=== PATIENT | female | born 1945 | race Caucasian/White ===

== ENCOUNTER 2019-01-19 07:26 | Emergency (ER) | payer MEDICARE, BC ==
[2019-01-19] MEDS ORDERED: Ciprofloxacin 500 MG Tab ONE (09:05)
--- NOTE | 2019-01-19 09:17 | EDM.PDOC ---
ED HPI GENERAL MEDICAL PROBLEM - General Chief Complaint: Genitourinary Problem Stated Complaint: UTI Time Seen by Provider: 01/19/19 08:30 Source of Information: Reports: Patient History Limitations: Reports: No Limitations - History of Present Illness INITIAL COMMENTS - FREE TEXT/NARRATIVE: According to patient she claims she started having dysuria yesterday on and off , but frequency of urination. But since she has woke up today, she has been having increased urinary frequency, urgency and worsening dysuria. No fever or chills. No nausea or vomiting. No back pain. No abdominal pain or suprapubic discomfort. No other complaints. Onset Date: 01/18/19 Duration: Getting Worse Severity: Mild Associated Symptoms: Denies: Confusion, Chest Pain, Cough, Diaphoresis, Fever/ Chills, Headaches, Loss of Appetite, Malaise, Nausea/Vomiting, Rash, Seizure, Shortness of Breath, Syncope, Weakness - Related Data Allergies Allergy/AdvReac Type Severity Reaction Status Date / Time morphine Allergy Nausea Verified 01/19/19 08:25 Home Meds: Home Meds ARIPiprazole [Abilify] 2 mg PO DAILY 01/19/19 [History] Jaars Carbonate 300 mg PO BEDTIME 01/19/19 [History] Oxybutynin 5 mg PO DAILY 01/19/19 [History] Tamoxifen [Nolvadex] 5 mg PO DAILY 01/19/19 [History] lamoTRIgine [Lamictal] 400 mg PO BEDTIME 01/19/19 [History] traZODone 100 mg PO BEDTIME 01/19/19 [History] Past Medical History HEENT History: Reports: Allergic Rhinitis, Other (See Below) Other HEENT History: more itchy eyes than rhinitis Other [employer] History: hysterectomy d/t bleeding Musculoskeletal History: Reports: Arthritis, Other (See Below) Other Musculoskeletal History: achy joints Psychiatric History: Reports: Bipolar Oncologic (Cancer) History: Reports: Breast - Infectious Disease History Infectious Disease History: Reports: Chicken Pox, Measles Social & Family History - Family History Family Medical History: Noncontributory - Tobacco Use Smoking Status *Q: Never Smoker Second Hand Smoke Exposure: No - Caffeine Use Caffeine Use: Reports: Coffee - Recreational Drug Use Recreational Drug Use: No ED ROS GENERAL - Review of Systems Review Of Systems: See Below Constitutional: Denies: Fever, Chills HEENT: Denies: Rhinitis, Throat Pain Respiratory: Denies: Shortness of Breath, Cough, Sputum Cardiovascular: Denies: Chest Pain, Lightheadedness GI/Abdominal: Denies: Abdominal Pain, Constipation, Diarrhea, Nausea, Vomiting : Reports: Dysuria, Frequency, Urgency. Denies: Discharge, Flank Pain, Hematuria Musculoskeletal: Denies: Back Pain, Joint Pain, Joint Swelling Skin: Denies: Bruising, Pruritis, Rash ED EXAM, GENERAL - Physical Exam Exam: See Below Exam Limited By: No Limitations General Appearance: Alert, WD/WN, No Apparent Distress Eye Exam: Bilateral Eye: EOMI, PERRL Ears: Normal External Exam, Normal Canal, Hearing Grossly Normal, Normal TMs Ear Exam: Bilateral Ear: Auricle Normal, Canal Normal, TM normal Nose: Normal Inspection, Normal Mucosa, No Blood Throat/Mouth: Normal Inspection, Normal Lips, Normal Teeth, Normal Gums, Normal Oropharynx, Normal Voice, No Airway Compromise Head: Atraumatic, Normocephalic Neck: Normal Inspection, Supple, Non-Tender, Full Range of Motion Respiratory/Chest: No Respiratory Distress, Lungs Clear, Normal Breath Sounds, No Accessory Muscle Use, Chest Non-Tender Cardiovascular: Normal Peripheral Pulses, Regular Rate, Rhythm, No Edema, No Gallop, No JVD, No Murmur, No Rub GI/Abdominal: Normal Bowel Sounds, Soft, Non-Tender, No Organomegaly, No Distention, No Abnormal Bruit, No Mass Extremities: Normal Inspection, Normal Range of Motion, Non-Tender, Normal Capillary Refill, No Pedal Edema Course - Vital Signs Text/Narrative:: UA shows large leucos-estrase. Also Micro shows 75-100 WBC. Pt reassured that she has lower urinary tract infection. Started on cipro 500mg twice daily for 1 wk. Advised to drink plenty of fluids. 1-2 glass of cranberry juice daily and 2 liters of fluids. Symptoms should gradually improve. return to Er if she develops fever, chills, nausea, vomiting or sever back pain. Last Recorded V/S: Last Vital Signs Temp 98 F 01/19/19 08:02 Pulse 76 01/19/19 08:02 Resp 16 01/19/19 08:02 BP 124/64 01/19/19 08:02 Pulse Ox 96 01/19/19 08:02 - Orders/Labs/Meds Labs: Laboratory Tests 01/19/19 Range/Units 08:00 Urine Color Yellow Urine Appearance Cloudy (CLEAR) Urine pH 6.0 (5.0-8.0) Ur Specific [place] 1.020 (1.003-1.030) Urine Protein 30 H (NEGATIVE) mg/dL Urine Glucose (UA) Negative (NEGATIVE) mg/dL Urine Ketones Trace H (NEGATIVE) mg/dL Urine Occult Blood Moderate H (NEGATIVE) Urine Nitrite Negative (NEGATIVE) Urine Bilirubin Negative (NEGATIVE) Urine Urobilinogen 0.2 (0.2-1.0) E.U./dL Ur Leukocyte Esterase Large H (NEGATIVE) Urine RBC 20-30 H /HPF Urine WBC 75-100 H /HPF Urine WBC Clumps Few /HPF Ur Squamous Epith Cells Few /HPF Urine Bacteria Few /HPF Departure - Departure Time of Disposition: 09:00 Disposition: Home, Self-Care 01 Condition: Fair Clinical Impression: UTI (urinary tract infection) - Discharge Information *PRESCRIPTION DRUG MONITORING PROGRAM REVIEWED*: Not Applicable *COPY OF PRESCRIPTION DRUG MONITORING REPORT IN PATIENT [place]: Not Applicable Instructions: Urinary Tract Infection, Adult, Ciprofloxacin tablets Referrals: PCP,None [Primary Care Provider] - Forms: ED Department Discharge Care Plan Goals: Take Cipro 2 c day for 7 days. Drink glasses cranberry juice daily and 2 liters of water daily. Should feel reliief in 24 hours. Return to clinic if symptoms return. Be sure to finish all antibiotic. - Problem List & Annotations (1) UTI (urinary tract infection) SNOMED Code(s): 74936451 Code(s): N39.0 - URINARY TRACT INFECTION, SITE NOT SPECIFIED Status: Acute Current Visit: Yes - Problem List Review Problem List Initiated/Reviewed/Updated: Yes - Assessment/Plan Assessment:: UTI Plan: UA shows large leucos-estrase. Also Micro shows 75-100 WBC. Pt reassured that she has lower urinary tract infection. Started on cipro 500mg twice daily for 1 wk. Advised to drink plenty of fluids. 1-2 glass of cranberry juice daily and 2 liters of fluids. Symptoms should gradually improve. return to Er if she develops fever, chills, nausea, vomiting or sever back pain.
== END 2019-01-19 09:19 | disposition home or self-care (01) ==
LOC: LB.ED 07:26
DX: N39.0 Urinary tract infection, site not specified (principal); F31.9 Bipolar disorder, unspecified; Z79.899 Other long term (current) drug therapy; Z88.5 Allergy status to narcotic agent
CPT/HCPCS: 81001; 99283; A9270-GY